=== PATIENT | female | born 1955 | race Caucasian/White ===

== ENCOUNTER 2017-05-08 16:59 | Emergency (ER) | payer OTHER ==
[~2017-05-08] VITALS: Ht 157.5 cm; Wt 90.0 kg
[~2017-05-08 16:59] MED LIST: ACAI500C4 PO; ASPI81 PO; BYST10TA2 PO; CLON.5 PO; DIOV160T8 PO; LEVO.075 PO; OMEG1CAP53 PO; TRIL135C PO; VITA400C70 PO; VITA80005 PO
[2017-05-08 17:02] VITALS: BP 152/72; PULSE 64; RESP 14; TEMP 98.1; O2SAT 99
[2017-05-08] MEDS ORDERED: ASPI81CH PO (17:31)
[2017-05-08] MEDS ORDERED: BYST10TA2 PO (17:32)
[2017-05-08] MEDS ORDERED: OMEG1CAP53 PO (17:32)
[2017-05-08] MEDS ORDERED: LEVO.075 PO (17:32)
[2017-05-08] MEDS ORDERED: TRIL135C PO (17:35)
[2017-05-08] MEDS ORDERED: DIOV160T9 PO (17:35)
--- NOTE | 2017-05-08 17:35 | RADRPT ---
EXAM DATE/TIME: 05/08/2017 17:17 [facility] COMPARISON: No previous studies available for comparison. INDICATIONS : Foot pain. MEDICAL HISTORY : Hypothyroidism. Hypertension SURGICAL HISTORY : Total knee replacement, left. Total knee replacement, right. ENCOUNTER: Initial ACUITY: 1 day PAIN SCORE: 7/10 LOCATION: Left foot, metatarsals. FINDINGS: Three view examination of the left foot demonstrates no soft tissue swelling, dislocation, or fractur e. The tarsal bones appear intact. The interphalangeal and metatarsophalangeal joints are intact. The calcaneus is intact with mild plantar spurring. Bony mineralization is normal. CONCLUSION: 1. No acute fracture or dislocation. 2. Mild calcaneal spurring. Stuart Hodges MD on May 08, 2017 at 17:33 Board Certified Radiologist. This report was verified electronically.
--- NOTE | 2017-05-08 17:44 | PD ---
HPI . left foot pain Chief Complaint: Injury Time Seen by Provider: 17:31 Travel History International Travel<30 days: No Contact w/Intl Traveler<30days: No Traveled to known affect area: No History of Present Illness HPI 61 yr old female here with c/o left foot pain. She tells me she had foot pain for several months over the summer, which she related to wearing flip flops, thus started wearing sneakers and it seemed to help. Today she decided to wear flip flops again and while walking out of a door on a flat surface she heard something pop. She had xrays ordered in triage, which were negative for fracture. She says her pain is 6/10, but declines any pain medications. PFSH Past Medical History Cancer: No Chest Pain: No Diabetes: No Gastrointestinal Disorders: No Glaucoma: No Hepatitis: No Hiatal Hernia: No Hypertension: Yes Integumentary: No Thyroid Disease: Yes Past Surgical History Thoracic Surgery: No Social History Alcohol Use: No Tobacco Use: No Allergies-Medications (Allergen,Severity, Reaction): Coded Allergies: No Known Allergies (Unverified , 05/08/17) Reported Meds & Prescriptions Reported Meds & Active Scripts Active Reported Diovan Hct (Valsartan-Hydrochlorothiazide) 160-25 Mg Tab 1 Tab PO DAILY Trilipix (Choline Fenofibrate DR) 135 Mg Capdr 135 Mg PO DAILY Bystolic (Nebivolol) 10 Mg Tab 10 Mg PO DAILY Synthroid (Levothyroxine Sodium) 75 Mcg Tab 75 Mcg PO DAILY Lovaza (Jluka-5-Afxd Ethyl Esters) 1 Gm Cap 4 Gm PO DAILY Aspirin 81 Mg Chew 162 Mg PO DAILY Review of Systems General / Constitutional: No: Fever Eyes: No: Visual changes HENT: No: Headaches Cardiovascular: No: Chest Pain or Discomfort Respiratory: No: Shortness of Breath Gastrointestinal: No: Abdominal Pain Genitourinary: No: Dysuria Musculoskeletal: Positive: Pain (left foot ) Skin: No Rash Neurologic: No: Weakness Psychiatric: No: Depression Endocrine: No: Polydipsia Hematologic/Lymphatic: No: Easy Bruising Physical Exam Narrative GENERAL: AAO x 3, no acute distress, Well-nourished, well-developed patient. SKIN: Warm and dry. No visible rashes or bruising. HEAD: Normocephalic and atraumatic. EYES: No scleral icterus. No injection or drainage. ENT: No nasal drainage noted. Mucous membranes pink. Airway patent. NECK: Supple, trachea midline. No JVD. CARDIOVASCULAR: Regular rate and rhythm without murmurs, gallops, or rubs. RESPIRATORY: Breath sounds equal bilaterally. No accessory muscle use. No rhonchi or rales. GASTROINTESTINAL: visual inspection normal EXTREMITIES: No cyanosis or edema. no overt abnormality of left foot and ankle. BACK: No obvious deformity. NEURO: CN II-12 intact, courtesy van driver strength normal b/l, UE and LE 5/5, no focal deficits PSYCH: AAO x 3, normal affect. Data Data Last Documented VS Vital Signs Date Time Temp Pulse Resp B/P (MAP) Pulse Ox O2 Delivery O2 Flow Rate FiO2 05/08/17 17:32 72 16 99 Room Air 05/08/17 17:02 98.1 152/72 (98) Orders Orders Foot, Complete ([id number]) (05/08/17 ) Anuel Bandage (05/08/17 17:43) ^ Other Nursing Orders (05/08/17 17:43) MDM Medical Decision Making Medical Screen Exam Complete: Yes Emergency Medical Condition: Yes Medical Record Reviewed: Yes Differential Diagnosis foot sprain, less likely fracture, stress fracture Narrative Course 61 yr old female here with left foot pain. Last Impressions Foot X-Ray 05/08/17 0000 Signed Impressions: Service Date/Time: Wednesday, May 08, 2017 17:17 - CONCLUSION: 1. No acute fracture or dislocation. 2. Mild calcaneal spurring. Stuart Hodges MD discussed results with patient. offered pain medication and she declined. Advised RICE and ibuprofen. Recommend outpatient f/u with podiatry. Patient given anuel wrap and post op shoe. Patient verbalized understanding of instructions, questions were answered, and thanked me for their care. I advised them if their condition worsens, please return to the nearest emergency room for further care. Diagnosis Primary Impression: Foot sprain Qualified Codes: S93.602A - Unspecified sprain of left foot, initial encounter Referrals: [facility] Patient Instructions: General Instructions Additional Instructions: Rest the affected area as much as possible. Ice this area for 15-20 minutes at a time. You can do this every hour or as much as tolerated. Keep this area compressed (anuel bandage) as tolerated. Elevate this area. Use ibuprofen as needed for pain and inflammation. Med/Other Pt SpecificInfo: No Change to Meds Disposition: 01 DISCHARGE HOME Condition: Stable Namita Crow May 08, 2017 17:44
[2017-05-08 17:55] VITALS: BP 122/78; TEMP 97.8
== END 2017-05-08 18:05 | disposition home or self-care (01) ==
LOC: NEPD 16:59
DX: S93.602A Unspecified sprain of left foot, initial encounter (principal); M77.32 Calcaneal spur, left foot; I10 Essential (primary) hypertension; E07.9 Disorder of thyroid, unspecified; Z79.82 Long term (current) use of aspirin; Z79.899 Other long term (current) drug therapy; X50.9XXA Other and unspecified overexertion or strenuous movements or postures, initial encounter
CPT/HCPCS: 73630; 99283